=== PATIENT | male | born 1945 | race Caucasian/White ===

== ENCOUNTER 2021-04-15 10:47 | Outpatient (CLI) | payer MEDICARE, OTHER ==
[~2021-04-15] VITALS: Ht 67 cm; Wt 70.3 kg
[2021-04-15 11:20] VITALS: BP 138/53
[2021-04-15] MEDS ORDERED: EPINEPHrine INJECTION 1 MG/ML AMP IM PRN (11:45)
[2021-04-15] MEDS ORDERED: ONDANSETRON 4 MG/2 ML (SDV) Z0FRAN IV PRN (11:45)
[2021-04-15] MEDS ORDERED: ACETAMINOPHEN 500 MG TAB (TYLENOL) PO PRN (11:45)
[2021-04-15] MEDS ORDERED: diphenhydrAMINE 50 MG/ML INJ (BENADRYL) IV PRN (11:45)
[2021-04-15] MEDS ORDERED: CASIRIVIMAB/IMDEVIMAB 1,200 MG in NS (IVPB) 250 ML IV ONE (11:45)
[2021-04-15 12:50] VITALS: BP 119/59
== END 2021-04-15 13:29 | disposition home or self-care (01) ==
LOC: INFUSION 10:47
PROVIDERS: ATTEND Nurse Practitioner Family
DX: U07.1 COVID-19 (principal)